=== PATIENT | female | born 1945 | race Hispanic/Latino ===

== ENCOUNTER → 2021-05-09 | Outpatient (CLI) | payer OTHER, MEDICARE ==
[~2021-05-09] MED LIST: ATOR40TA71 PO; FENO160T16 PO; INSU3INS3 SQ; ISOS30TA92 PO; KRIL1CAP12 PO; LEVO250S3 PO; LISI-809 PO; METO-408 PO; VITAMIN D PO
== END | disposition home or self-care (01) ==
LOC: SHCH 08:36
PROVIDERS: ATTEND Internal Medicine Cardiovascular Disease
DX: I87.2 Venous insufficiency (chronic) (peripheral) (principal)
CPT/HCPCS: 93970

== ENCOUNTER → 2023-01-16 | Outpatient (CLI) | payer OTHER, MEDICARE ==
[~2023-01-16] MED LIST changes: -LEVO250S3 PO; +LEVO250S9 PO; -LISI-809 PO; +LISI5TAB21 PO
[2023-01-16 16:22] LABS: CREATININE 4.1 mg/dL (0.5-1.5); MAGNESIUM 1.9 mg/dL (1.80-2.40); POTASSIUM 4.6 mmol/L (3.5-5.1)
== END | disposition home or self-care (01) ==
LOC: LAB 14:25
PROVIDERS: ATTEND Physician Assistant
DX: I48.0 Paroxysmal atrial fibrillation (principal); I10 Essential (primary) hypertension
CPT/HCPCS: 36415; 80048; 83735; 83880

== ENCOUNTER → 2023-03-01 | Outpatient (CLI) | payer OTHER, MEDICARE | END | disposition home or self-care (01) | LOC: SHCH 15:14 | PROVIDERS: ATTEND Internal Medicine Cardiovascular Disease | DX: I08.3 Combined rheumatic disorders of mitral, aortic and tricuspid valves (principal); I27.20 Pulmonary hypertension, unspecified; I25.5 Ischemic cardiomyopathy | CPT/HCPCS: 93306 ==

== ENCOUNTER 2025-06-07 06:23 | Day surgery (SDC) | payer MEDICARE, MEDICAID ==
[2025-06-07] VITALS (9 sets, daily range): BP systolic 107–157; BP diastolic 63–94; PULSE 67–80; RESP 14–18; TEMP 97.3–97.9
[~2025-06-07] VITALS: Ht 152.4 cm; Wt 59.0 kg
[2025-06-07] MEDS: 0.9%NACL 1000ML 1,000 ML IV ONE (07:08)
--- NOTE | 2025-06-07 09:47 | NUR ---
BOTH PT AND SON GIVEN VERBAL AND WRITTEN DISCHARGE INSTRUCTIONS IV REMOVED SITE ASYMPTOMATIC. PT TAKEN OUT VIA WHEELCHAIR SON DRIVING
== END 2025-06-07 09:45 | disposition home or self-care (01) ==
LOC: DAH 06:23
PROVIDERS: ATTEND Internal Medicine Gastroenterology
DX: R10.13 Epigastric pain (principal); K29.50 Unspecified chronic gastritis without bleeding; R14.0 Abdominal distension (gaseous); R11.10 Vomiting, unspecified; K31.89 Other diseases of stomach and duodenum; K25.9 Gastric ulcer, unspecified as acute or chronic, without hemorrhage or perforation; I12.0 Hypertensive chronic kidney disease with stage 5 chronic kidney disease or end stage renal disease; E11.22 Type 2 diabetes mellitus with diabetic chronic kidney disease; N18.6 End stage renal disease; D63.1 Anemia in chronic kidney disease; E78.5 Hyperlipidemia, unspecified; Z95.0 Presence of cardiac pacemaker; Z98.84 Bariatric surgery status; Z98.49 Cataract extraction status, unspecified eye; Z79.4 Long term (current) use of insulin; Z79.899 Other long term (current) drug therapy
CPT/HCPCS: 43239; 82948 ×2; J7030; J2704; A4620; A4215; J3490